=== PATIENT | male | born 2000 | race Caucasian/White ===

== ENCOUNTER 2023-01-16 18:09 | Emergency (ER) | payer BC, SELFPAY ==
[2023-01-16 18:26] VITALS: BP 127/74; PULSE 76; RESP 16; TEMP 36.6; O2SAT 99; BMI 18.1
--- NOTE | 2023-01-16 18:30 | XR_ITS ---
The [address] [address] Patient Name: SHANNAN RANDALL MRN: [id number] date: 2000 Sex: M Assigned Patient Location: ER Current Patient Location: ED.MAIN Accession/Order Number: [id number] Exam Date: 01/16/2023 18:35 Report Date: 01/16/2023 19:07 At the request of: ZOYA DHALIWAL Procedure: XR hand RT min 3V EXAM: XR hand RT min 3V HISTORY: hand injury COMPARISON: None. TECHNIQUE: 3 views of the right hand are performed. FINDINGS: There is soft tissue swelling over the dorsal aspect of the hand. No acute fracture is seen. Joint spaces are maintained. XR/XR hand RT min 3V IMPRESSION: Dorsal soft tissue swelling. No acute fracture. Electronically authenticated by: ZENOBIA OROZCO Date: 01/16/2023 19:07
--- NOTE | 2023-01-16 18:59 | ED_ITS ---
HPI - Extremity Injury (Upper) General Chief Complaint: Extremity Injury, Upper Stated Complaint: Upper Extremity Injury Time Seen by Provider: 01/16/23 18:29 Source: patient Mode of arrival: walk-in History of Present Illness HPI narrative: patient is a 22-year-old male who presents to the emergency department for the evaluation of an injury to the right hand that occurred while he was working on his girlfriend's car. He states he was holding a nail with his right hand and slipped trying to hit with a hammer and hit his hand instead. He is noted to have swelling and tenderness over the 2nd and 3rd metacarpals on the dorsum of the right hand. He is right-hand dominant. No medications taken prior to arrival. Related Data Previous Rx's Medication Instructions Recorded ketorolac 10 mg tablet 10 mg PO TID PRN pain #10 tabs 01/16/23 Allergies Allergy/AdvReac Type Severity Reaction Status Date / Time No Known Drug Allergies Allergy Verified 01/16/23 18:29 Review of Systems ROS Constitutional Denies: fever or chills Ears, nose, mouth, and throat Denies: neck pain Cardiovascular Denies: chest pain Respiratory Denies: shortness of breath or cough Gastrointestinal Denies: nausea or vomiting Musculoskeletal Denies: back pain Integumentary/Breast Denies: rash Hematologic/Lymphatic Denies: easy bruising Exam Narrative Exam Narrative: Gen.: Awake, alert, in no distress Head: Normocephalic, atraumatic ENT: Moist mucous membranes Respiratory: No respiratory distress Extremities: Moves extremities equally, tenderness, swelling and faint abrasion over the dorsum of the right hand at the 2nd and 3rd metacarpals. 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 No lacerations or tenderness over the 5th metacarpal. No tenderness of the right wrist. 2+ right radial pulse. Psych: Normal mood and affect Neuro: No focal neuro deficit Skin: Warm, dry, intact Constitutional Vital Signs, click to edit/add: Last Vital Signs Temp 98 F 01/16/23 18:26 Pulse 76 01/16/23 18:26 Resp 16 01/16/23 18:26 BP 127/74 01/16/23 18:26 Pulse Ox 99 01/16/23 18:26 O2 Del Method Room Air 01/16/23 18:26 Course Vital Signs Vital signs: Vital Signs Temperature 98 F 01/16/23 18:26 Pulse Rate 76 01/16/23 18:26 Respiratory Rate 16 01/16/23 18:26 Blood Pressure 127/74 01/16/23 18:26 Pulse Oximetry 99 01/16/23 18:26 Oxygen Delivery Method Room Air 01/16/23 18:26 Temperature 98 F 01/16/23 18:26 Pulse Rate 76 01/16/23 18:26 Respiratory Rate 16 01/16/23 18:26 Blood Pressure 127/74 01/16/23 18:26 Pulse Oximetry 99 01/16/23 18:26 Oxygen Delivery Method Room Air 01/16/23 18:26 MDM - Extremity Injury (Upper) MDM Narrative Medical decision making narrative: x-rays of the right hand with no evidence of fracture or dislocation. Patient placed in a splint with Thanh wrap and remains neurovascularly intact. Rest, ice, elevate. Follow-up with PCP and return to [facility] emergency department if symptoms change or worsen. NSAIDs given for home. Medical Records Attestation: I reviewed the patient's medical records. Imaging Data XR hand right: Attestation: I personally reviewed and interpreted this imaging study as follows: My impression: NAD Discharge Plan Discharge Chief Complaint: Extremity Injury, Upper Clinical Impression: Contusion of hand, right Patient Disposition: Home, Self-Care Time of Disposition Decision: 19:03 Condition: Good Prescriptions / Home Meds: New ketorolac 10 mg tablet 10 mg PO TID PRN (Reason: pain) Qty: 10 0RF Instructions: Contusion in Adults (ED) Stand Alone Forms: Portal Instructions Referrals: Physician,Non-Staff, MD [Primary Care Provider] - 1 week
== END 2023-01-16 19:13 | disposition home or self-care (01) ==
PROVIDERS: Emergency Provider Emergency Medicine Emergency Medical Services
DX: S60.221A Contusion of right hand, initial encounter (principal); W22.8XXA Striking against or struck by other objects, initial encounter
CPT/HCPCS: 73130; 99283